=== PATIENT | male | born 1985 | race Hispanic/Latino ===

== ENCOUNTER 2018-09-23 11:36 | Emergency (ER) | payer OTHER ==
[2018-09-23] MEDS ORDERED: KETOROLAC TROMETHAMINE 60 MG/2 ML VIAL ONE (12:30)
[2018-09-23] MEDS ORDERED: CYCLOBENZAPRINE HCL 10 MG TABLET ONE (12:30)
== END 2018-09-23 12:48 | disposition home or self-care (01) ==
LOC: EDH 11:36
DX: M94.0 Chondrocostal junction syndrome [Tietze] (principal); Z90.49 Acquired absence of other specified parts of digestive tract
CPT/HCPCS: 71046; 96372; 99283; J1885